=== PATIENT | male | born 1990 | race Caucasian/White ===

== ENCOUNTER 2021-01-05 12:54 | Emergency (ER) | payer OTHER, SELFPAY ==
[2021-01-05 13:15] VITALS: BP 145/77; PULSE 69; RESP 16; TEMP 36.3; O2SAT 99
--- NOTE | 2021-01-05 14:12 | ED.URI ---
HPI - URI/Sore Throat General Chief Complaint: Upper Respiratory Infection Stated Complaint: cough Source: patient, RN notes reviewed and old records reviewed Mode of arrival: ambulatory Limitations: no limitations History of Present Illness HPI Narrative: 31 year old male accompanied by presents to express care with complaints of headache, sneezing,sinus drainage with sore throat, and sinus pressure since Sunday. patient states that he has been taking OTC DayQuil and NyQuil and nasal spray for his symptoms. Patient also states that he took a COVID test that they bought at [facility] which was negative. Patient reports that he has generalized discomfort denies any know fevers, chills or sweats. has not had COVID vaccination. MD elicited complaint: cough, sore throat, rhinorrhea, nasal congestion and sinus pain Related Data Allergies Allergy/AdvReac Type Severity Reaction Status Date / Time No Known Allergies Allergy Verified 01/05/21 13:32 Review of Systems Review of Systems: CONSTITUTIONAL: Denies fever, chills, or sweats. EYES: Denies visual changes, redness, or discharge. ENT: positive rhinorrhea, congestion, sore throat, no otalgia. CARDIOVASCULAR: Denies chest pain, palpitations, or edema. RESPIRATORY: Positive cough no dyspnea. GASTROINTESTINAL: Denies abdominal pain, nausea, vomiting, or diarrhea. GENITOURINARY: Denies dysuria or hematuria. SKIN: Denies rash or itching. MUSCULOSKELETAL: Denies back pain, joint pain, general body aches NEUROLOGIC: Positive frontal headache,no numbness, or weakness. PSYCHIATRIC: Denies anxiety or depression. All systems reviewed & are unremarkable except as noted in HPI and below PMFSH Past Medical History Medical History (Updated 01/10/21 @ 15:46 by Ivonne Bustillo NP) History of sinus problem Surgical History Surgical History (Updated 01/10/21 @ 15:42 by Ivonne Bustillo NP) No history of previous surgery Family History Family History (Updated 01/10/21 @ 15:42 by Ivonne Bustillo NP) Other No significant family history Social History Social History (Updated 01/05/21 @ 14:52 by Ivonne Bustillo NP) Smoking packs per day: 0.5 Smoking cigarettes per day: 10.0 Smoking status: Current every day smoker Tobacco type: cigarettes Alcohol intake: current Alcohol use details: social Living arrangements: with family Gender identity (if verbalized by the patient): Male Comments At time of signature, agree with nursing past medical, surgical, social and family history. There is no relevant family history pertinent to the presenting complaint Exam Narrative: GENERAL: Ill-appearing, well-nourished,obese and in no acute distress. HEAD: Normocephalic, atraumatic. EYES: PERRLA and EOMI. ENT: Nares red, clear rhinorrhea no epistaxis. Mucous membranes moist.TM's normal with good light reflex, throat red with no exudates or lesions, tonsil enlarged and swollen uvula enlargeed and red, post nasal drainage also noted. NECK: Supple. lymphadenopathy CHEST: Clear to auscultation. No respiratory distress. Cough harsh which is dry SaO2 98% on room air HEART: Regular rate and rhythm. No murmur heard. Normal peripheral pulses. ABDOMEN: Soft, nontender, nondistended, normal active bowel sounds. EXTREMITIES: Normal range of motion. No edema. SKIN: Warm, dry, no rash. NEURO: No focal deficits. Alert and oriented x3. Course Vital Signs Vital signs: Vital Signs Temperature 36.3 C L 01/05/21 13:15 Pulse Rate 69 01/05/21 13:15 Respiratory Rate 16 01/05/21 13:15 Blood Pressure 145/77 H 01/05/21 13:15 Pulse Oximetry 99 01/05/21 13:15 Temperature 36.3 C L 01/05/21 13:15 Pulse Rate 69 01/05/21 13:15 Respiratory Rate 16 01/05/21 13:15 Blood Pressure 145/77 H 01/05/21 13:15 Pulse Oximetry 99 01/05/21 13:15 MDM - URI/Sore Throat Differential Diagnosis Differential diagnosis: Likely upper respiratory infection, sinusitis, viral infectio
== END 2021-01-05 15:05 | disposition home or self-care (01) ==
PROVIDERS: Emergency Provider Registered Nurse
DX: J06.9 Acute upper respiratory infection, unspecified (principal); J03.90 Acute tonsillitis, unspecified; Z20.822 Contact with and (suspected) exposure to COVID-19; F17.210 Nicotine dependence, cigarettes, uncomplicated
CPT/HCPCS: 87081; 87426; 87880; 99203; C9803; G0463